=== PATIENT | female | born 1980 | race Caucasian/White ===

== ENCOUNTER 2017-04-12 16:29 | Emergency (ER) | payer OTHER ==
[~2017-04-12] VITALS: Ht 154.9 cm; Wt 65.3 kg
[2017-04-12] MEDS ORDERED: ALBUTEROL SULFATE 2.5 MG/0.5 ML INH NEB SOLN NEB ONE (17:00)
--- NOTE | 2017-04-12 17:41 | REP ---
CHEST, TWO VIEWS: There is no evidence of acute infiltrate. No pleural effusion is seen. The heart is normal in size. The mediastinal silhouette is unremarkable. The visualized osseous structures are intact. IMPRESSION: No acute pulmonary disease. Signed by Kevin Minaya MD 04/12/2017 06:11 P
[2017-04-12] MEDS ORDERED: ALBU17IN INH (18:26)
[2017-04-12] MEDS ORDERED: OMEP40CA2 PO (18:26)
[2017-04-12 18:33] VITALS: BP 114/76
--- NOTE | 2017-04-12 18:52 | REP ---
SOFT TISSUES NECK: AP and lateral views of the soft tissues of the neck are performed. Adenoids are nonenlarged. There is no prevertebral soft tissue swelling. Airway is widely patent with no narrowing. Epiglottis is normal. IMPRESSION: Negative exam soft tissues neck. Signed by Kevin Minaya MD 04/12/2017 07:15 P
== END 2017-04-12 18:40 | disposition home or self-care (01) ==
LOC: M ED 16:29
DX: R06.02 Shortness of breath (principal); F17.210 Nicotine dependence, cigarettes, uncomplicated

== ENCOUNTER → 2017-05-18 | Outpatient (REF) | payer OTHER ==
[~2017-05-18] MED LIST: ALBU17IN INH; OMEP40CA2 PO
[2017-05-18 17:10] LABS: ALBUMIN 4.9 GM/DL (3.2-5.2); ALBUMIN/GLOBULIN RATIO 1.48 (1.00-1.93); ALKALINE PHOSPHATASE 60 U/L (45-117); ALT/SGPT 22 U/L (12-78); ANION GAP 7 MEQ/L (8-16); AST/SGOT 13 U/L (15-37); BILIRUBIN,TOTAL 0.4 MG/DL (0.2-1.0); BLOOD UREA NITROGEN 8 MG/DL (7-18); CALCIUM LEVEL 9.7 MG/DL (8.5-10.1); CARBON DIOXIDE LEVEL 29 MEQ/L (21-32); CHLORIDE LEVEL 104 MEQ/L (98-107); CREATININE FOR GFR 0.72 MG/DL (0.55-1.02); GLOMERULAR FILTRATION RATE > 60.0 (>60); GLUCOSE, FASTING 93 MG/DL (70-105); POTASSIUM SERUM 3.8 MEQ/L (3.5-5.1); SODIUM LEVEL 140 MEQ/L (136-145); TOTAL PROTEIN 8.2 GM/DL (6.4-8.2)
[2017-05-18 17:24] LABS: BASO % 0.9 % (0.0-1.0); LARGE UNSTAINED CELL # 0.1 K/mm3 (0.0-0.4); LARGE UNSTAINED CELL % 1.9 % (0.0-4.0); LYMPH # 1.5 K/mm3 (1.5-4.5); LYMPH % 29.1 % (24.0-44.0); MEAN CORPUSCULAR HEMOGLOBIN 30.5 pg (27.0-33.0); MEAN CORPUSCULAR HGB CONC 34.6 g/dl (32.0-36.5); MEAN CORPUSCULAR VOLUME 88.2 fl (80.0-96.0); MONO # 0.2 K/mm3 (0.0-0.8); MONO % 4.2 % (0.0-5.0); NEUTROPHILS # 3.2 K/mm3 (1.8-7.7); NEUTROPHILS % 62.9 % (36.0-66.0); PLATELET COUNT, AUTOMATED 261 k/mm3 (150-450); RED CELL DISTRIBUTION WIDTH 12.5 % (11.5-14.5)
[2017-05-25 14:15] LABS: HEPATITIS C QUANTITATION HCV Not Detected IU/mL (.)
== END ==
LOC: M SFHCPLAZ 12:22
PROVIDERS: ATTEND Internal Medicine Infectious Disease
DX: B19.20 Unspecified viral hepatitis C without hepatic coma (principal)

== ENCOUNTER → 2017-06-21 | Outpatient (REF) | payer OTHER ==
[2017-06-21 12:57] LABS: ALBUMIN 4.3 GM/DL (3.2-5.2); ALBUMIN/GLOBULIN RATIO 1.19 (1.00-1.93); ALKALINE PHOSPHATASE 47 U/L (45-117); ALT/SGPT 17 U/L (12-78); AST/SGOT 11 U/L (15-37); BILIRUBIN,DIRECT < 0.1 MG/DL (0.0-0.2); BILIRUBIN,TOTAL 0.5 MG/DL (0.2-1.0); TOTAL PROTEIN 7.9 GM/DL (6.4-8.2)
[2017-06-25 00:08] LABS: HEPATITIS C QUANTITATION HCV Not Detected IU/mL (.)
== END ==
LOC: M SFHCPLAZ 09:58
PROVIDERS: ATTEND Internal Medicine Infectious Disease
DX: B19.20 Unspecified viral hepatitis C without hepatic coma (principal)

== ENCOUNTER → 2018-02-28 | Outpatient (REF) | payer OTHER ==
[2018-03-02 14:10] LABS: HPV HYBRID CAPTURE II Negative (Negative)
== END ==
LOC: M SFHCWAGY 15:12
DX: Z12.4 Encounter for screening for malignant neoplasm of cervix (principal)

== ENCOUNTER 2018-07-26 17:32 | Emergency (ER) | payer OTHER ==
[2018-07-26] MEDS: predniSONE 20 MG TAB PO (19:18)
[2018-07-26] MEDS: diphenhydrAMINE 25 MG CAP PO (19:18)
== END 2018-07-26 19:44 | disposition home or self-care (01) ==
LOC: M ED 17:32
DX: L29.9 Pruritus, unspecified (principal); L30.9 Dermatitis, unspecified; Z79.899 Other long term (current) drug therapy
CPT/HCPCS: 99282

== ENCOUNTER 2020-10-29 13:09 | Emergency (ER) | payer OTHER ==
[~2020-10-29] VITALS: Ht 157.5 cm; Wt 65.4 kg
[~2020-10-29 13:09] MED LIST changes: -OMEP40CA2 PO; +OMEP40CA97 PO; +PRED20TA PO
[2020-10-29 13:10] VITALS: BP 127/79
--- OUTSIDE RECORDS SUMMARY | 2020-10-29 13:20 | CCD ---
Author Author [facility] Organization [facility] Address Unknown Phone Unavailable Support Name Relationship Address Phone UNEMPLOYED Next Of Kin Unknown MANJINDERGENOVEVA KEVIN Next Of Kin [address] [place] [address] [address] [place] [address] FERNANDEZ CAGLEA Next Of Kin [address] [place] [address] [address] [place] [address] UE Next Of Kin Unknown Unavailable SERV[place] [address] SUZI CAGLE Next Of Kin [address] [place] [address] [address] [place] [address] KARY PARDO Next Of Kin [address] [facility] [address] [place] [address] KARY ELIZALDE Next Of Kin Unknown Kevin Lainez [address] [place] [address] Unavailable Re-disclosure Warning The records that you are about to access may contain information from federally-assisted alcohol or drug abuse programs. If such information is present, then the following federally mandated warning applies: This information has been disclosed to you from records protected by federal confidentiality rules (42 CFR part 2). The federal rules prohibit you from making any further disclosure of this information unless further disclosure is expressly permitted by the written consent of the person to whom it pertains or as otherwise permitted by 42 CFR part 2. A general authorization for the release of medical or other information is NOT sufficient for this purpose. The Federal rules restrict any use of the information to criminally investigate or prosecute any alcohol or drug abuse patient.The records that you are about to access may contain highly sensitive health information, the redisclosure of which is protected by Article 27-F of the [place] State Public Health law. If you continue you may have access to information: Regarding HIV / AIDS; Provided by facilities licensed or operated by the [facility] Office of Mental Health; or Provided by the [facility] Office for People With Developmental Disabilities. If such information is present, then the following [facility] mandated warning applies: This information has been disclosed to you from confidential records which are protected by state law. State law prohibits you from making any further disclosure of this information without the specific written consent of the person to whom it pertains, or as otherwise permitted by law. Any unauthorized further disclosure in violation of state law may result in a fine or penitentiary sentence or both. A general authorization for the release of medical or other information is NOT sufficient authorization for further disc losure. Insurance Providers Payer name Policy type / Coverage type Policy ID Covered constitution party ID Covered constitution party's relationship to cross Policy Cross Plan Information [facility] [id number] SP [id number] [facility]-Medicaid [id number] [facility]-Medicaid [id number] [facility]-Medicaid [id number] ANSI-Medicaid [id number] [facility]-Medicaid [id number] [facility]-Medicaid [id number] ANSI-Medicaid [id number] ANSI-Medicaid [id number] [employer] MCDO [id number] SP [id number] [facility]) O [id number] S [id number] [employer] COMMUNITY PLAN MCDO [id number] SP [id number] [facility] HEA [id number] S [id number] SELF PAY HEA UNAVAILABLE UNAVAILA BLE MEDICAID [id number] SP [id number] D [facility] P [id number] S [id number] Medicaid Dental S [id number] S [id number] Results ID Date Data Source [id number] 10/05/2020 12:00:00 AM EST [facility] Name Value Range Interpretation Code Description Data Dorcas rce(s) Supporting Document(s) SARS-CoV2 Rapid Antigen Negative [facility] This lab was ordered by [facility] and reported by [facility]. Procedure
--- OUTSIDE RECORDS SUMMARY | 2020-10-29 14:10 | CCD ---
Author Author [facility] Organization [facility] Address Unknown Phone Unavailable Support Name Relationship Address Phone UNEMPLOYED Next Of Kin Unknown MANJINDERGENOVEVA KEVIN Next Of Kin [address] [place] [address] [address] [place] [address] FERNANDEZ CAGLEA Next Of Kin [address] [place] [address] [address] [place] [address] UE Next Of Kin Unknown Unavailable SERVICE [place] [address] SUZI CAGLE Next Of Kin [address] [place] [address] [address] [place] [address] KARY PARDO Next Of Kin [address] [facility] [address] [place] [address] KARY ELIZALDE Next Of Kin Unknown Kevin Lainez [address] [place] [address] Unavailable Re-disclosure Warning The records that you [...] is protected by Article 27-F of the [place] State Public Health law. If you continue you may have access to information: Regarding HIV / AIDS; Provided by facilities licensed or operated by the [facility] Office of Mental Health; or Provided by the [facility] Office for People With Developmental Disabilities. If such information is present, then the following [facility] mandated warning applies: This information has been [...] law may result in a fine or longterm sentence or both. A general authorization for the release of medical or other information is NOT sufficient authorization for further disc losure. Insurance Providers Payer name Policy type / Coverage type Policy ID Covered alliance party ID Covered alliance party's relationship to cross Policy Cross Plan Information [facility] COMMUNITY [facility]AN [facility] [id number] SP [id number] [facility]-Medicaid [id number] [facility]-Medicaid [id number] [facility]-Medicaid [id number] ANSI-Medicaid [id number] [facility]-Medicaid [id number] [facility]-Medicaid [id number] ANSI-Medicaid [id number] ANSI-Medicaid [id number] [employer] COMMUNITY PLAN MCDO [id number] SP [id number] [facility]) O [id number] S [id number] [employer] COMMUNITY PLAN MCDO [id number] SP [id number] [facility] HEA [id number] S [id number] SELF PAY HEA UNAVAILABLE UNAVAILA BLE MEDICAID [id number] SP [id number] D [facility] P [id number] S [id number] Medicaid Dental S [id number] S [id number] Results ID Date Data Source [id number] 10/05/2020 12:00:00 AM EST [facility] Name Value Range Interpretation Code Description Data Dorcas rce(s) Supporting Document(s) SARS-CoV2 Rapid Antigen Negative [facility] This lab was ordered by [facility] and reported by [facility]. Procedure
== END 2020-10-29 14:42 | disposition home or self-care (01) ==
LOC: M ED 13:09
DX: Z60.9 Problem related to social environment, unspecified (principal); F41.9 Anxiety disorder, unspecified

== ENCOUNTER → 2021-09-07 | Outpatient (REF) | payer OTHER ==
[~2021-09-07] MED LIST changes: +OMEP40CA4 PO; -OMEP40CA97 PO
== END ==
LOC: M SFHCWAGY 17:12
PROVIDERS: ATTEND Nurse Practitioner Women's Health
DX: Z01.419 Encounter for gynecological examination (general) (routine) without abnormal findings (principal)

== ENCOUNTER → 2021-12-22 | Outpatient (CLI) | payer OTHER ==
[~2021-12-22] MED LIST changes: +PROHANCE 279.3MG/ML 15ML VIAL As Ordered ONE
== END ==
LOC: M RAD 12:24
PROVIDERS: ATTEND Surgery
DX: R92.8 Other abnormal and inconclusive findings on diagnostic imaging of breast (principal); Z15.01 Genetic susceptibility to malignant neoplasm of breast; Z15.09 Genetic susceptibility to other malignant neoplasm
CPT/HCPCS: 77049; A9576

== ENCOUNTER → 2022-10-06 | Outpatient (REF) | payer OTHER ==
[~2022-10-06] MED LIST changes: -PROHANCE 279.3MG/ML 15ML VIAL As Ordered ONE
== END ==
LOC: M SFHCWAGY 10:05
PROVIDERS: ATTEND Advanced Practice Midwife
DX: N89.8 Other specified noninflammatory disorders of vagina (principal)

== ENCOUNTER 2022-10-16 14:56 | Outpatient (CLI) | payer OTHER ==
[2022-10-16 15:05] VITALS: BP 147/74
[2022-10-16] MEDS ORDERED: cefTRIAXone SOD 1 GM in D5W MINI-BAG PLUS 50 ML IV SCH (15:30)
[2022-10-16 15:45] VITALS: BP 126/91
== END 2022-10-16 15:48 | disposition home or self-care (01) ==
LOC: M INFU 14:56
PROVIDERS: ATTEND Advanced Practice Midwife
DX: A49.8 Other bacterial infections of unspecified site (principal)

== ENCOUNTER → 2022-10-24 | Outpatient (CLI) | payer OTHER | LOC: M WHC 10:01 | PROVIDERS: ATTEND Advanced Practice Midwife | DX: Z15.02 Genetic susceptibility to malignant neoplasm of ovary (principal); Z97.5 Presence of (intrauterine) contraceptive device ==

== ENCOUNTER → 2023-03-16 | Outpatient (REF) | payer OTHER | LOC: M SFHCWAGY 17:06 | PROVIDERS: ATTEND Nurse Practitioner Family | DX: N89.8 Other specified noninflammatory disorders of vagina (principal) ==

== ENCOUNTER → 2025-05-06 | Outpatient (REF) | payer OTHER ==
[2025-05-08 15:23] LABS: HPV APTIMA Not Detected (Not Detected)
== END ==
LOC: M PLALAB 15:06
PROVIDERS: ATTEND Advanced Practice Midwife
DX: Z12.4 Encounter for screening for malignant neoplasm of cervix (principal)